=== PATIENT | female | born 1930 | race Caucasian/White ===

== ENCOUNTER 2016-07-27 21:40 | Inpatient (IN) | payer MEDICARE ==
[~2016-07-27] VITALS: Ht 167.6 cm; Wt 85.0 kg
[~2016-07-27 21:40] MED LIST: COUMADIN 4 MG TA4 M1 PO; IMDUR 30 MG TAB30 M1 PO; K-DUR 20 MEQ T20 MEQ PO; LASIX 40 MG TAB40 M2 PO; LEVOTHYROXINE0.05 MG PO
[2016-07-27 21:54] VITALS: BP 113/62
[2016-07-27] MEDS ORDERED: LEXAPRO5 MG PO (22:02)
[2016-07-27] MEDS ORDERED: ATORVASTATIN CA40 MG PO (22:02)
[2016-07-27] MEDS ORDERED: ALDACTONE25 MG PO (22:02)
[2016-07-27] MEDS ORDERED: EDARBI80 MG PO (22:03)
[2016-07-27 23:10] LABS: BASOPHILS 1.1 % (0.0-2.0); EOSINOPHILS 0.5 % (0.0-3.0); HEMATOCRIT 42.8 % (37.0-47.0); HEMOGLOBIN 14.7 gm/dL (12.0-15.0); LYMPHOCYTES 26.6 % (24.0-44.0); MCH 31.6 pg (26.0-34.0); MCHC 34.4 g/dL (28.0-37.0); PLATELET COUNT 234 thou/uL (150-400); POLYS 65.8 % (36.0-66.0); RBC 4.66 mil/uL (4.20-5.00); RDW 14.6 % (10.5-14.5); WBC 7.6 thou/uL (4.0-11.0)
[2016-07-27 23:20] LABS: CALCIUM 9.3 mg/dL (8.5-10.1); CREATININE 1.5 mg/dL (0.6-1.0)
[2016-07-27 23:24] LABS: ALBUMIN 3.4 g/dL (3.4-5.0); TOTAL BILIRUBIN 0.6 mg/dL (<0.1-1.0); TOTAL PROTEIN 7.5 g/dL (6.4-8.2)
[2016-07-27 23:36] LABS: MANUAL DIFF NO
[2016-07-28 02:39] VITALS: BP 130/70
[2016-07-28 04:00] VITALS: BP 167/73
[2016-07-28 08:00] VITALS: BP 155/76
[2016-07-28 16:00] VITALS: BP 156/70
[2016-07-28 20:00] VITALS: BP 116/44
[2016-07-29 04:00] VITALS: BP 130/48
[2016-07-29 04:33] LABS: HEMATOCRIT 43.1 % (37.0-47.0); HEMOGLOBIN 14.6 gm/dL (12.0-15.0); MCH 31.6 pg (26.0-34.0); RBC 4.63 mil/uL (4.20-5.00); RDW 15.3 % (10.5-14.5); WBC 7.1 thou/uL (4.0-11.0)
[2016-07-29 04:42] LABS: CALCIUM 9.1 mg/dL (8.5-10.1); CREATININE 1.5 mg/dL (0.6-1.0); POTASSIUM 3.6 mmol/L (3.5-5.1)
[2016-07-29 16:24] LABS: URINE BILIRUBIN NEGATIVE (Negative); URINE BLOOD NEGATIVE (Negative); URINE COLOR YELLOW; URINE GLUCOSE-RANDOM* NEGATIVE (Negative); URINE KETONES NEGATIVE (Negative); URINE LEUKOCYTES-REFLEX NEGATIVE (Negative); URINE PROTEIN (DIPSTICK) NEGATIVE (Negative); URINE SPECIFIC GRAVITY 1.025 (1.003-1.035); URINE UROBILINOGEN 0.2 E.U./dl (0.2-1.0)
[2016-07-29 18:01] VITALS: BP 169/73
[2016-07-29 20:46] VITALS: BP 191/71
[2016-07-29 23:15] VITALS: BP 203/73
[2016-07-30 04:45] LABS: HEMATOCRIT 40.2 % (37.0-47.0); MCH 32.3 pg (26.0-34.0); MCHC 34.7 g/dL (28.0-37.0); MCV 92.9 fL (80.0-100.0); RBC 4.33 mil/uL (4.20-5.00); RDW 14.7 % (10.5-14.5); WBC 7.2 thou/uL (4.0-11.0)
[2016-07-30 04:52] VITALS: BP 183/67
[2016-07-30 05:00] LABS: CALCIUM 8.5 mg/dL (8.5-10.1); POTASSIUM 4.1 mmol/L (3.5-5.1)
[2016-07-30 06:24] VITALS: BP 169/68
[2016-07-30 09:07] VITALS: BP 130/104
[2016-07-30 15:54] VITALS: BP 134/42
[2016-07-30 19:56] VITALS: BP 147/57
[2016-07-31 05:03] LABS: HEMATOCRIT 39.8 % (37.0-47.0); HEMOGLOBIN 13.4 gm/dL (12.0-15.0); MCH 31.7 pg (26.0-34.0); MCHC 33.7 g/dL (28.0-37.0); MCV 94.1 fL (80.0-100.0); RBC 4.23 mil/uL (4.20-5.00); RDW 14.7 % (10.5-14.5); WBC 7.8 thou/uL (4.0-11.0)
[2016-07-31 05:15] LABS: CALCIUM 8.8 mg/dL (8.5-10.1); CREATININE 1.2 mg/dL (0.6-1.0); POTASSIUM 4.4 mmol/L (3.5-5.1)
[2016-07-31 06:50] VITALS: BP 161/60
[2016-07-31] MEDS ORDERED: CIPRO500 MG PO (13:33)
[2016-07-31] MEDS ORDERED: FLAGYL500 MG PO (13:33)
[2016-07-31] MEDS ORDERED: AMLODIPINE BESY10 MG PO (13:34)
[2016-07-31 14:10] VITALS: BP 196/70
== END 2016-07-31 14:44 | disposition home or self-care (01) | DRG 391 ==
LOC: ER 21:40 → 4N 07-28 02:14 → EROBS 07-28 02:14 → 4N 07-28 02:38
PROVIDERS: Emergency Medicine; Hospitalist; Nurse Practitioner Adult Health; Nurse Practitioner Family
DX: K52.9 Noninfective gastroenteritis and colitis, unspecified (principal); N17.0 Acute kidney failure with tubular necrosis; I13.0 Hypertensive heart and chronic kidney disease with heart failure and stage 1 through stage 4 chronic kidney disease, or unspecified chronic kidney disease; E87.1 Hypo-osmolality and hyponatremia; E78.5 Hyperlipidemia, unspecified; I50.9 Heart failure, unspecified; I48.91 Unspecified atrial fibrillation; N18.9 Chronic kidney disease, unspecified; K59.00 Constipation, unspecified; R19.7 Diarrhea, unspecified; I25.10 Atherosclerotic heart disease of native coronary artery without angina pectoris; E03.9 Hypothyroidism, unspecified; F41.9 Anxiety disorder, unspecified; F32.9 Major depressive disorder, single episode, unspecified; E78.00 Pure hypercholesterolemia, unspecified; Z85.3 Personal history of malignant neoplasm of breast; Z92.21 Personal history of antineoplastic chemotherapy; Z79.899 Other long term (current) drug therapy; I25.2 Old myocardial infarction; Z95.2 Presence of prosthetic heart valve; Z90.710 Acquired absence of both cervix and uterus; Z90.49 Acquired absence of other specified parts of digestive tract; Z82.49 Family history of ischemic heart disease and other diseases of the circulatory system
CPT/HCPCS: 10091